=== PATIENT | female | born 1970 | race Caucasian/White ===

== ENCOUNTER 2020-11-22 12:06 | Day surgery (SDC) | payer OTHER ==
[2020-11-20 09:23] VITALS: BMI 25.1
[~2020-11-22 12:06] MED LIST: DEXAMETHASONE SOD PHOSPHATE 4 MG/ML 1 ML VIAL IV ONE; HYDROmorphone 0.5 MG/0.5 ML SYRINGE IVP PRN; LACTATED RINGERS 1,000 ML IV SCH; LIDOCAINE 1% (10MG/ML) FOR IV START INTRADERMA PRN; MIDAZOLAM 2 MG/2 ML VIAL IV PRN; ONDANSETRON 4 MG/2 ML VIAL IVP ONE
[2020-11-22 13:14] LABS: Glucose,Whole Blood 124 mg/dL (75-99)
[2020-11-22] MEDS ORDERED: SUCCINYLCHOLINE CHLORIDE 100 MG/5 ML SYR IV ONE (13:30)
[2020-11-22] MEDS ORDERED: PROPOFOL 10 MG/ML 20 ML VIAL IV ONE (13:30)
[2020-11-22] MEDS ORDERED: DEXAMETHASONE SOD PHOSPHATE 4 MG/ML 1 ML VIAL ONE (13:30)
[2020-11-22] MEDS ORDERED: LIDOCAINE 1% INJ 10MG/ML (20 ML MDV) ONE (13:30)
[2020-11-22] MEDS ORDERED: fentaNYL (PF) 50 MCG/ML 2 ML AMP ONE (13:30)
[2020-11-22] MEDS ORDERED: MIDAZOLAM 2 MG/2 ML VIAL ONE (13:30)
[2020-11-22] MEDS ORDERED: ROPIVACAINE 5 MG/ML 30 ML VIAL ONE (13:30)
[2020-11-22 14:54] VITALS: TEMP 97
--- NOTE | 2020-11-22 15:11 | FL ---
Fluoroscopy History: Right Oblique Fibula Shaft Fracture Fl time 32 seconds.
--- NOTE | 2020-11-22 15:11 | P.OP ---
Preoperative Diagnosis: 1. Displaced right fibular shaft fracture 2. Ruptured syndesmosis right ankle 3. Ruptured deltoid ligament right ankle Postoperative Diagnosis: 1. Displaced right fibular shaft fracture 2. Ruptured syndesmosis right ankle Procedure(s) Performed: 1. Open reduction with internal fixation right fibular shaft fracture 2. Open reduction with internal fixation right syndesmotic rupture Implants: 8-hole one third tubular plate, 3.5 locking screws, 1 Arthrex Tightrope Anesthesia: ADEEL Surgeon: Shahab Del Valle Estimated Blood Loss (ml): 3 Pathology: none sent Condition: stable Disposition: PACU Indications for Procedure: Patient suffered an pronation/eversion right ankle injury that resulted in a displaced fibular shaft fracture with syndesmosis disruption and possible deltoid ligament rupture Operative Findings: There was evidence of the syndesmotic rupture as well as the obvious proximal shaft fracture however there was no deltoid insufficiency. Description of Procedure: Prior to the patient being brought to the operating room anesthesia administered a nerve block in the right lower extremity under ultrasonic guidance with mild sedation. The patient was brought into the operating room and placed on table supine po sition. Timeout was taken to confirm correct patient identifiers, correct procedure, and correct site of surgery. When all staff in the room were in agreement the patient was placed under general anesthetic. A well-padded tourniquet was placed on the right thigh and a bump underneath the right hip to internally rotate the right leg. The right leg was then prepped and draped in the usual manner. The right leg was exsanguinated and the tourniquet inflated to 250 mmHg Attention was directed over the right lateral ankle where a linear incision was made over the fracture site of the fibular shaft. The incision was deepened down to the subcutaneous layer being careful to identify, avoid, and retract any neurovascular structures and cauterize any bleeding vessels. Blunt dissection was then carried down to level the periosteum. The periosteum was incised and reflected away from the fracture line. The fracture was distracted and any interposing soft tissue and hematoma were removed. Bone reduction forceps were used to rotate and bring the fracture out to length and then brought into normal alignment and held in place. A K-wire was driven across the fracture line to maintain positioning. Fluoroscopy confirmed a near anatomic alignment of the fracture. An 8 hole Arthrex one third tubular plate was then held in position of the fibula and then with fluoroscopy was adjusted to the proper positioning and then temporarily fixated. 3.5 locking screws were placed through the plate proximal to the fracture and then 3.5 locking screws were placed through the plate distal to the fracture. The last 3 holes were used however the central hole was left open for the placement of the tight rope. The temporary fixation was removed and those holes were filled with 3.5 locking screws. Then under direct fluoroscopic visualization the drill for the tight rope anchor was then placed in the central hole as mentioned above and advanced medially and anteriorly across the fibula into the tibia until it penetrated the medial cortex of the tibia. The tight rope anchor was inserted and advanced so that the medial button was passed the cortex. The button was released and the manipulated in place until it sat flat against the tibia. The rest of the it risk and assurance manager was released and removed and then a large joint reduction forceps was used to reduce the syndesmosis and hold it in place once that was completed the suture ends of the tight rope were then tightened in the correct manner until about engaged the plate and there was proper tension on the suture. Once that was completed the reduction forceps were removed and the ankle was taken through range of motion and also through stress maneuvers with external rotation and valgus tilt. There is no evidence of excessive motion at the syndesmosis there was no medial talar tilt nor was there any gapping of the medial joint space. The wound is then irrigated thoroughly with antibiotic saline. Deep closure was done with 0 Vicryl. Subcutaneous closure was done with 4-0 Monocryl. Skin closure was done with stainless donnie. An Arthrex jumpstart dressing was applied over the incision and then a dry compressive dressing applied over the ankle. The tourniquet was deflated and capillary refill time return to all digits of the right foot. The patient was placed in a below-knee fracture boot while holding the ankle in neutral position. Anesthesia was then reversed and the patient was taken recovery with vital signs stable
--- NOTE | 2020-11-22 15:25 | XR ---
Fluoroscopy History: Oblique Right Shaft Fracture Fl time 32 seconds.
[2020-11-22 15:40] LABS: Glucose,Whole Blood 114 mg/dL (75-99)
[2020-11-22 16:03] VITALS: RESP 18
[2020-11-22] MEDS ORDERED: HYDROcodone/APAP 5-325MG 1 EACH TAB ONE (16:06)
[2020-11-22] MEDS ORDERED: HYDROcodone/APAP 5-325MG 1 EACH TAB PO ONE (16:07)
[2020-11-22 16:30] VITALS: BP 135/88; PULSE 75
--- NOTE | 2020-11-23 10:06 | P.ANPRN ---
Procedure Note - Anesthesia - Nerve Block Performed Right Popliteal Single Time Out Performed: Yes Date of Procedure: 11/22/20 Procedure Start Time: : Procedure Stop Time: : Location of Patient: PreOp Indication: Acute Post-Operative Pain, Requested by Surgeon Sedation Type: Sedate with meaningful contact maintained Preparation: Sterile Prep Position: Left Lateral Needle Types: Pajunk Needle Gauge: 21 Ultrasound used to visualize needle placement: Yes Ultrasound used to observe medication spread: Yes Blood Aspirated: No Pain Paresthesia on Injection Noted: No Resistance on Injection: Normal Image Stored and Saved: Yes Events: Uneventful and Well Tolerated (ropi .5% 20cc plus dexamethasone 4mg)
--- NOTE | 2020-11-23 10:08 | P.ANPRN ---
Procedure Note - Anesthesia - Nerve Block Performed Right Saphenous Nerve Block Single Time Out Performed: Yes Date of Procedure: 11/22/20 Procedure Start Time: Procedure Stop Time: Location of Patient: PreOp Indication: Acute Post-Operative Pain, Requested by Surgeon Sedation Type: Sedate with meaningful contact maintained Preparation: Sterile Prep Position: Supine Needle Types: Pajunk Needle Gauge: 21 Blood Aspirated: No Resistance on Injection: Normal Image Stored and Saved: Yes Events: Uneventful and Well Tolerated (ropi .5% 10cc)
== END 2020-11-22 16:45 | disposition home or self-care (01) ==
LOC: OR 12:06
PROVIDERS: ATTEND Podiatrist
DX: S82.831A Other fracture of upper and lower end of right fibula, initial encounter for closed fracture (principal); S93.431A Sprain of tibiofibular ligament of right ankle, initial encounter; E11.9 Type 2 diabetes mellitus without complications; E03.9 Hypothyroidism, unspecified; Z79.84 Long term (current) use of oral hypoglycemic drugs; Z79.890 Hormone replacement therapy; Z97.3 Presence of spectacles and contact lenses; Z88.0 Allergy status to penicillin; Z88.2 Allergy status to sulfonamides; Z83.3 Family history of diabetes mellitus; Z82.49 Family history of ischemic heart disease and other diseases of the circulatory system; W19.XXXA Unspecified fall, initial encounter
CPT/HCPCS: 27784; 27829; 64447; 64445; 76942; 73600; C1713 ×2; J2250; J1100; J0690; J2405; J2001; J3010; J2795; J0330; J2704; J1170